=== PATIENT | male | born 1960 | race Caucasian/White ===

== ENCOUNTER 2020-04-06 19:15 | Emergency (ER) | payer MEDICAID ==
[~2020-04-06] VITALS: Ht 170.2 cm; Wt 75.0 kg
--- NOTE | 2020-04-06 19:30 | NUR ---
PT IS ANGRY, YELLING AT THIS NURSE SAYS HE DOESN'T WANT TO BE HERE BUT CAN'T WALK. THIS PRODUCTION PROOFREADER WITNESSED PT MOVING HIS RIGHT ARM AND RIGHT LEG. HE HAS STRONG FAMILY NURSE BILAT, STRONG PUSH PULL BILAT LEG MOVEMENTS. NO SLURRY SPEACH. EKG DONE, IV IN PLACE, ON MONITOR SINUS FLO. Addendum: 04/06/20 at 1934 by [place] PT SAYS HE WOKE UP LIKE THIS SOMETIME THIS AM MAYBE AROUND 9. ONLY MEDICAL HX IS ARTHRITIS.
[2020-04-06 20:24] LABS: BASOPHILS % (AUTO) 1 % (0-1); EOSINOPHILS % (AUTO) 3 % (1-7); LYMPHOCYTES % (AUTO) 12 % (22-44); MEAN CORPUSCULAR HEMOGLOBIN 31.5 pg (27.5-34.5); MEAN CORPUSCULAR HGB CONC 33.4 g/dL (33.2-36.2); MEAN PLATELET VOLUME 6.1 fL (7.4-10.4); MONOCYTES % (AUTO) 7 % (2-9); NEUTROPHILS % (AUTO) 77 % (42-75); PLATELET COUNT 422 x10^3/uL (130-400); RED BLOOD COUNT 4.66 x10^6/uL (4.38-5.82); RED CELL DISTRIBUTION WIDTH 13.9 % (9.4-14.8)
[2020-04-06 20:26] LABS: CALCIUM 8.4 mg/dL (8.5-10.1); CHLORIDE 108 mmol/L (98-107); CREATININE 0.87 mg/dL (0.7-1.3)
[2020-04-06 20:29] LABS: MD NO
[2020-04-06 20:32] LABS: ANION GAP 4 mmol/L (5-15)
--- NOTE | 2020-04-06 20:50 | NUR ---
VSS, CLEMENT, WILL CONTINUE TO MONITOR.
--- NOTE | 2020-04-06 21:02 | NUR ---
Note doris in EDM - 04/06/20 at 2126 by [email or web address] PT ABLE TO MOVE ALL EXT, WITNESSED WALKING STEADY GAIT NO DEFICITS. VSS. IV DC CATH INTACT. PT TO FU WITH PCP CLINIC RETURN TO ER IF WORSE OR CONCNERNS.
--- NOTE | 2020-04-06 21:26 | NUR ---
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
--- NOTE | 2020-04-06 21:28 | NUR ---
PT REFUSES TO GET BACK INTO [facility].
--- NOTE | 2020-04-06 21:28 | NUR ---
DISCUSSED CASE WITH AND PA, ORDER FOR HEAD CT. WILL CONTINUE TO MONITOR PT. VSS.
[2020-04-06 21:33] VITALS: BP 134/84
--- NOTE | 2020-04-06 21:48 | NUR ---
CT DONE, PT SEEN MOVING ALL HIS EXTREMITIES.
--- NOTE | 2020-04-06 21:57 | NUR ---
DR COUGHLIN AT BEDSIDE TO EXAMINE PT. PT MOVING ALL EXTREMITIES.
--- NOTE | 2020-04-06 22:06 | NUR ---
PT DC POST NEG CT SCAN, PT TO FU WITH PCP RETURN TO ER IF WORSE OR CONCERNS.
--- NOTE | 2020-04-06 22:15 | NUR ---
PT GIVEN TAXI VOUCHER AND DC PAPERS. PT IN NAD. RR EQUAL AND UNLABORED.
== END 2020-04-06 21:13 | disposition home or self-care (01) ==
LOC: ED 21:10
DX: R20.2 Paresthesia of skin (principal); F12.10 Cannabis abuse, uncomplicated; Z72.9 Problem related to lifestyle, unspecified; R00.1 Bradycardia, unspecified
CPT/HCPCS: 36415; 70450; 80048; 85025; 93005; 99285